=== PATIENT | male | born 2000 | race Caucasian/White ===

== ENCOUNTER 2024-02-14 13:45 | Outpatient (RCR) | payer OTHER, MEDICAID, SELFPAY ==
--- NOTE | 2024-01-31 16:30 | PT.OPPOC ---
Physical, Occupational & Speech Therapy At [facility] Current Diagnoses Functional intestinal disorder, unspecified (01/31/24) Abnormal posture (01/31/24) Other difficulties with micturition (01/31/24) Weakness (01/31/24) Visit Care Team Role Provider Type Referring Provider Specialty: Address: Phone: Fax: Email: Maryam Treadwell MD Family Provider Non-Staff Primary Care Provider Specialty: Internal Medicine Address: [address] [place], [address] Email: Seb Estevez MD Attending Provider Non-Staff Specialty: Urology Address: [address] [place], [address] Email: Plan Of Care PT-OP-T Assessment and Plan Start: 01/31/24 13:54 Freq: Status: Active Protocol: Document 01/31/24 13:45 [facility] (Rec: 02/02/24 11:38 [facility] [id number]) Physical Therapy Assessment Rehab Potential Rehabilitation Potential Good Evaluation Complexity Number of Personal Factors/Comorbidities 0 Number of Body Systems Impaired 1-2 Clinical Presentation at Evaluation Stable Impairments Impairments Functional Mobility,Pain, Posture,Soft Tissue Mobility, Strength,Tone Goals 4 Impairment Decreased awareness of the pelvic floor and transverse abdominal muscles Senior Living Goal (LTG) Aleksey is independent with a home program of both pelvic floor relaxation as well as endurance training and improved strength of the transverse abdominal musculature LTG Duration 8 weeks 3 Impairment Bowel dysfunction and Aleksey does not always have daily bowel movements which can contribute to urinary urgency Short Term Goal (STG) Aleksey is educated in self abdominal massage to help improve frequency of bowel movements STG Duration 4 weeks 2 Impairment poor postural habits and decreased use of the diaphragm with tightness and compression across the lower rib cage and the region of the transverse colon Short Term Goal (STG) Aleksey is educated on diaphragmatic breathing and postural exercises STG Duration weeks 1 Impairment voiding dysfunction with intermittent difficulty emptying the bladder and slow hesitant urinary stream Short Term Goal (STG) Aleksey is educated on bladder irritants as well as bladder retraining to help improve voids STG Duration 4 weeks Senior Living Goal (LTG) Aleksey reports improvement with his ability to void and feels as if he is able to fully empty his bladder LTG Duration 8 weeks Assessment Summary Assessment Aleksey is a 24 year old male referred to PT with history of dysfunctional voiding including difficulty with voiding and with bowel movements. Aleksey reports he has had difficulty voiding his whole life but notes it has worsened. He states that at times he is able to void what he feels like as completely and other times where he has a slow and hesitant stream to void and doesn't feel he empties all the way. He reports he has had a chronic dysfunction with his bowels and has a history of bowel movements only a few times per week but this has improved lately. Aleksey does have a history of Gastroesophageal reflux disease, GI bleed, asthma I reviewed fluid intake with Aleksey and he was given a bladder diary to record fluid intake and voids for the next week. He states he is only drinking Monster energy drinks as well as G-fuel energy drinks during his day. He is not drinking water at this time. Aleksey works [employer] and notes his sleep in the day is often disrupted due to commitments he has. He wakes 2-3 times during his sleep to void. I educated Aleksey on bladder irritants today and the importance of flushing out the bladder with water. With exam Aleksey is very tight and guarded in the region of the upper abdominal wall and diaphragm. He holds tension here and there is decreased use of the diaphragm for respiration as he using mainly the upper neck and chest. There is fascial tightness across the suprapubic fascia and bladder as well as over the transverse colon and descending colon. Aleksey was educated in a self massage over the colon to help stimulate bowel movements. Aleksey sits in a forward posture with forward head and shoulders which can contribute to his symptoms. Further evaluation of the pelvic floor will be done at next visit and Aleksey will be educated in exercises to open up the anterior chest, encourage diaphragmatic breathing and relaxed awareness of the pelvic floor for improved ability to fully void. Aleksey is a good candidate for PT Physical Therapy Plan Frequency and Duration Frequency of Treatment 1x/Week Duration of treatment (weeks) 8 Plan of Care Start Date 01/31/24 Plan of Care End Date 03/27/24 Therapeutic Interventions Therapeutic Interventions Manual Therapy,Neuromuscular Re-education,Patient/Caregiver Education,Self-Care/Home Management,Soft Tissue Mobilization,Therapeutic Exercises Modalities Biofeedback Next Visit Focus/Plan Next Note Type Treatment Note Next Visit Plan review abdominal massage technique given today and review bladder diary with Aleksey, begin pelvic floor training both for relaxed awareness of the pelvic floor and for endurance training, educate Aleksey on bladder retraining Plan of Care Dates Plan of Care Start Date 01/31/24 Plan of Care End Date 03/27/24 Electronically Signed by: Raven Rivas, PT 02/02/24 5110 If you are in agreement with this Plan of Care, please return a signed and dated copy. I have reviewed this Plan of Care and certify that the skilled therapy services above are required to meet the patient?s needs. Physician Signature Date Printed Name and Credentials Clinical Instructor Signature Printed Name and Credentials
--- NOTE | 2024-01-31 16:30 | PT.OIE ---
Current Diagnoses Functional intestinal disorder, unspecified (01/31/24) Abnormal posture (01/31/24) Other difficulties with micturition (01/31/24) Weakness (01/31/24) Visit Care Team Role Provider Type Referring Provider Specialty: Address: Phone: Fax: Email: Maryam Treadwell MD Family Provider Non-Staff Primary Care Provider Specialty: Internal Medicine Address: [address] [place], [address] Email: Seb Estevez MD Attending Provider Non-Staff Specialty: Urology Address: [address] [place], [address] Email: Physical Therapy Initial Evaluation PT-OP-A Visit Information Start: 01/31/24 13:54 Freq: Status: Active Protocol: Document 01/31/24 13:45 [facility] (Rec: 02/02/24 11:27 [facility] [id number]) Out-Patient Physical Therapy Visit Information Visit Information Visit Type Initial Evaluation Visit Start Time 13:45 Visit Stop Time 14:30 Visit Number 1 Evaluation Information Evaluation Date 01/31/24 PT-OP-B Current Condition Start: 01/31/24 13:54 Freq: Status: Active Protocol: Document 01/31/24 13:45 [facility] (Rec: 01/31/24 14:34 [facility] [id number]) Current Condition History of Current Condition Onset Date chronic but worsening Current Complaints difficulty voiding and with bowel movements, urinary urgency History of Current Condition 24 year old male who has difficulty with voiding and bowel dysfuction and referred to PT with dysfunctional voiding. Aleksey reports his symptoms are intermittent and at times he tries to void and nothing comes out and other times it comes out fine. He voids 5-6 times per day. Has a history of bowel movements only 2 times per week and he has been working on this and now he is having a bowel movement every day. 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 He reports he has been drinking a lot of caffeine, 2 monsters per day and gfuel energy drinks. goes to bed at 6 in the am and gets 5-6 hours of sleep but broken up. Aleksey reports It takes about 10 minutes to void fully. Treatment Goals Patient/Caregiver Goals to improve voiding and eliminate urgency PT-OP-C Subjective Start: 01/31/24 13:54 Freq: Status: Active Protocol: Document 01/31/24 13:45 [facility] (Rec: 02/02/24 11:38 [facility] [id number]) Patient Questionnaires Pelvic Pain and Urgency/Frequency Patient Symptom Scale Pelvic Pain Score 10 OP-PT Pain Assessment Pain Assessment Grid Paper Pain Assessment Grid Completed Yes Location bladder Pain Location Details anterior pelvis over the bladder Intensity 2 Scale Used Numeric (0 - 10) PT-OP-F Manual Assessment Start: 01/31/24 13:54 Freq: Status: Active Protocol: Document 01/31/24 13:45 [facility] (Rec: 02/02/24 11:38 [facility] [id number]) Manual Assessments Soft Tissue Assessment Soft Tissue Mobility Assessment fascial restrictions noted in the suprapubic fascia over the bladder and over the transverse and descending colon, decreased diaphragmatic breathing ability and pt uses hip upper neck and chest to breath, tightness of the upper abdominal fascia PT-OP-I Pelvic Floor Start: 01/31/24 13:54 Freq: Status: Active Protocol: Document 01/31/24 13:45 [facility] (Rec: 02/02/24 11:38 [facility] [id number]) Pelvic Floor Assessment Urine Pelvic Floor Surgery No Urinary Symptoms Urge Sensation,Hesitancy, Incomplete Emptying,Pain Other Urinary Symptoms pain with intercourse and ejaculation, urinary urgency and frequency, Aleksey reports he strains at times to void, slow hesitant urinary stream Nocturia 2-3 PT-OP-J Posture/Palpation/Skin Start: 02/02/24 11:57 Freq: Status: Active Protocol: Document 01/31/24 13:45 [facility] (Rec: 02/02/24 11:58 [facility] [id number]) Posture Evaluation Position Sitting Evaluation View Lateral Head/C-Spine Posture Flexed TMJ Posture Lips Together Shoulder Posture (L) Rounded,(R) Rounded Comments Posture Comments forward shoulder and slumped forward posture PT-OP-M Strength Start: 01/31/24 13:54 Freq: Status: Active Protocol: Document 01/31/24 13:45 [facility] (Rec: 02/02/24 13:54 [facility] [id number]) Trunk Strength Trunk Manual Muscle Testing Core Stabilization poor core stabilization and decreased lower abdominal activation PT-OP-Q Treatments Start: 01/31/24 13:54 Freq: Status: Active Protocol: Document 01/31/24 13:45 [facility] (Rec: 02/02/24 11:41 [facility] [id number]) Manual Therapy Treatment Soft Tissue Mobilization ILU abdominal massage Mobilization Type Myofascial Release Intensity/Depth Moderate Body Position Hooklying Comments Aleksey was instruced in ILU self massage over the abdominal wall and I was able to work on MFR today, he is restricted in the transverse and descending colon Self-Care/Home Management Treatment Education Patient Education Home Exercise Program Other Education Aleksey was given a bladder diary with instructions to track caffeine intake, water intake and voids, he was instructed in ILU self massage to help with bowel movements PT-OP-T Assessment and Plan Start: 01/31/24 13:54 Freq: Status: Active Protocol: Document 01/31/24 13:45 [facility] (Rec: 02/02/24 11:38 [facility] [id number]) Physical Therapy Assessment Rehab Potential Rehabilitation Potential Good Evaluation Complexity Number of Personal Factors/Comorbidities 0 Number of Body Systems Impaired 1-2 Clinical Presentation at Evaluation Stable Impairments Impairments Functional Mobility,Pain, Posture,Soft Tissue Mobility, Strength,Tone Goals 4 Impairment Decreased awareness of the pelvic floor and transverse abdominal muscles Pull Over Machine Operator Goal (LTG) Aleksey is independent with a home program of both pelvic floor relaxation as well as endurance training and improved strength of the transverse abdominal musculature LTG Duration 8 weeks 3 Impairment Bowel dysfunction and Aleksey does not always have daily bowel movements which can contribute to urinary urgency Short Term Goal (STG) Aleksey is educated in self abdominal massage to help improve frequency of bowel movements STG Duration 4 weeks 2 Impairment poor postural habits and decreased use of the diaphraghm with tightness and compression across the lower rib cage and the region of the transverse colon Short Term Goal (STG) Aleksey is educated on diaphragmatic breathing and postural exercises STG Duration weeks 1 Impairment voiding dysfunction with intermittent difficulty emptying the bladder and slow hesitant urinary stream Short Term Goal (STG) Aleksey is educated on bladder irritants as well as bladder retraining to help improve voids STG Duration 4 weeks Pull Over Machine Operator Goal (LTG) Aleksey reports improvement with his ability to void and feels as if he is able to fully empty his bladder LTG Duration 8 weeks Assessment Summary Assessment Aleksey is a 24 year old male referred to PT with history of dysfunctional voiding including difficulty with voiding and with bowel movements. Aleksey reports he has had difficulty voiding his whole life but notes it has worsened. He states that at times he is able to void what he feels like as completely and other times where he has a slow and hesitant stream to void and doesn't feel he empties all the way. He reports he has had a chronic dysfunction with his bowels and has a history of bowel movements only a few times per week but this has improved lately. Aleksey does have a history of Gastroesophageal reflux disease, GI bleed, asthma I reviewed fluid intake with Aleksey and he was given a bladder diary to record fluid intake and voids for the next week. He states he is only drinking Monster energy drinks as well as G-fuel energy drinks during his day. He is not drinking water at this time. Aleksey works [employer] and notes his sleep in the day is often disrupted due to commitments he has. He wakes 2-3 times during his sleep to void. I educated Aleksey on bladder irritants today and the importance of flushing out the bladder with water. With exam Aleksey is very tight and guarded in the region of the upper abdominal wall and diaphraghm. He tolds tension here and there is decreased use of the diaphraghm for respiration as he using maining the upper neck and chest. There is fascial tightness across the suprapubic fascia and bladder as well as over the transverse colon and descending colon. Aleksey was educated in a self massage over the colon to help stimulate bowel movements. Aleksey sits in a forward posture with forward head and shoulders which can contribute to his symptoms. Further evaluation of the pelvic floor will be done at next visit and Aleksey will be educated in exercises to open up the anterior chest, encourage diaphragmatic breathing and relaxed awareness of the pelvic floor for improved ability to fully void. Aleksey is a good candidate for PT Physical Therapy Plan Frequency and Duration Frequency of Treatment 1x/Week Duration of treatment (weeks) 8 Plan of Care Start Date 01/31/24 Plan of Care End Date 03/27/24 Therapeutic Interventions Therapeutic Interventions Manual Therapy,Neuromuscular Re-education,Patient/Caregiver Education,Self-Care/Home Management,Soft Tissue Mobilization,Therapeutic Exercises Modalities Biofeedback Next Visit Focus/Plan Next Note Type Treatment Note Next Visit Plan review abdominal massage technique given today and review bladder diary with Aleksey, begin pelvic floor training both for relaxed awareness of the pelvic floor and for endurance training, educate Aleksey on bladder retraining
--- NOTE | 2024-02-14 14:27 | PT.OTN ---
Current Diagnoses Functional intestinal disorder, unspecified (02/14/24) Abnormal posture (02/14/24) Other difficulties with micturition (02/14/24) Weakness (02/14/24) Physical Therapy Treatment Note PT-OP-A Visit Information Start: 01/31/24 13:54 Freq: Status: Active Protocol: Document 02/14/24 13:42 [facility] (Rec: 02/14/24 14:26 [facility] [id number]) Out-Patient Physical Therapy Visit Information Visit Information Visit Type Treatment Note Visit Start Time 13:45 Visit Stop Time 14:30 Visit Number 2 PT-OP-B Current Condition Start: 01/31/24 13:54 Freq: Status: Active Protocol: Document 01/31/24 13:45 [facility] (Rec: 01/31/24 14:34 [facility] [id number]) Current Condition History of Current Condition Onset Date chronic but worsening Current Complaints difficulty voiding and with bowel movements, urinary urgency History of Current Condition 24 year old male who has difficulty with voiding and bowel dysfuction and referred to PT with dysfunctional voiding. Aleksey reports his symptoms are intermittent and at times he tries to void and nothing comes out and other times it comes out fine. He voids 5-6 times per day. Has a history of bowel movements only 2 times per week and he has been working on this and now he is having a bowel movement every day. He works [employer] shift so he sleeps during the middle of the day and he does wake up during his sleep to go to the bathroom 2-3 times. He reports he has been drinking a lot of caffeine, 2 monsters per day and gfuel energy drinks. goes to bed at 6 in the am and gets 5-6 hours of sleep but broken up. Aleksey reports It takes about 10 minutes to void fully. Treatment Goals Patient/Caregiver Goals to improve voiding and eliminate urgency PT-OP-C Subjective Start: 01/31/24 13:54 Freq: Status: Active Protocol: Document 02/14/24 13:42 [facility] (Rec: 02/14/24 14:26 [facility] [id number]) OP-PT Subjective Patient Comments Patient Comments pt notes he has been drinking a lot more caffiene as he notes he really likes monsters . He has been trying to get in more water. He notes he has been very busy and only has had time to do the ILU massage one time. He reports he does not feel like he is fully emptying. PT-OP-F Manual Assessment Start: 01/31/24 13:54 Freq: Status: Active Protocol: Document 01/31/24 13:45 [facility] (Rec: 02/02/24 11:38 [facility] [id number]) Manual Assessments Soft Tissue Assessment Soft Tissue Mobility Assessment fascial restrictions noted in the suprapubic fascia over the bladder and over the transverse and descending colon, decreased diaphragmatic breathing ability and pt uses hip upper neck and chest to breath, tightness of the upper abdominal fascia PT-OP-I Pelvic Floor Start: 01/31/24 13:54 Freq: Status: Active Protocol: Document 01/31/24 13:45 [facility] (Rec: 02/02/24 11:38 [facility] [id number]) Pelvic Floor Assessment Urine Pelvic Floor Surgery No Urinary Symptoms Urge Sensation,Hesitancy, Incomplete Emptying,Pain Other Urinary Symptoms pain with intercourse and ejaculation, urinary urgency and frequency, Aleksey reports he strains at times to void, slow hesitant urinary stream Nocturia 2-3 PT-OP-J Posture/Palpation/Skin Start: 02/02/24 11:57 Freq: Status: Active Protocol: Document 01/31/24 13:45 [facility] (Rec: 02/02/24 11:58 [facility] [id number]) Posture Evaluation Position Sitting Evaluation View Lateral Head/C-Spine Posture Flexed TMJ Posture Lips Together Shoulder Posture (L) Rounded,(R) Rounded Comments Posture Comments forward shoulder and slumped forward posture PT-OP-M Strength Start: 01/31/24 13:54 Freq: Status: Active Protocol: Document 01/31/24 13:45 [facility] (Rec: 02/02/24 13:54 [facility] [id number]) Trunk Strength Trunk Manual Muscle Testing Core Stabilization poor core stabilization and decreased lower abdominal activation PT-OP-Q Treatments Start: 01/31/24 13:54 Freq: Status: Active Protocol: Document 02/14/24 13:42 [facility] (Rec: 02/14/24 14:26 [facility] [id number]) Therapeutic Exercises Supine Exercises piriformis stretch Reps/Minutes hold 1-2 min modified squat stretch Reps/Minutes hold 1-2 minutes Prone Exercises prone on elbows Reps/Minutes 1-2 reps hodling 30 seconds Other Exercises lisandra pose Reps/Minutes hold 1-2 minute cat cow Reps/Minutes x 10 reps Self-Care/Home Management Treatment Education Patient Education Home Exercise Program Other Education instructions on voiding techniques to assist with pelvic floor relaxation, HEP PT-OP-T Assessment and Plan Start: 01/31/24 13:54 Freq: Status: Active Protocol: Document 02/14/24 13:42 [facility] (Rec: 02/14/24 14:26 [facility] [id number]) Physical Therapy Assessment Rehab Potential Rehabilitation Potential Good Evaluation Complexity Number of Personal Factors/Comorbidities 0 Number of Body Systems Impaired 1-2 Clinical Presentation at Evaluation Stable Impairments Impairments Functional Mobility,Pain, Posture,Soft Tissue Mobility, Strength,Tone Goals 4 Impairment Decreased awareness of the pelvic floor and transverse abdominal muscles Senior Living Goal (LTG) Aleksey is independent with a home program of both pelvic floor relaxation as well as endurance training and improved strength of the transverse abdominal musculature LTG Duration 8 weeks 3 Impairment Bowel dysfunction and Aleksey does not always have daily bowel movements which can contribute to urinary urgency Short Term Goal (STG) Aleksey is educated in self abdominal massage to help improve frequency of bowel movements STG Duration 4 weeks 2 Impairment poor postural habits and decreased use of the diaphraghm with tightness and compression across the lower rib cage and the region of the transverse colon Short Term Goal (STG) Aleksey is educated on diaphragmatic breathing and postural exercises STG Duration weeks 1 Impairment voiding dysfunction with intermittent difficulty emptying the bladder and slow hesitant urinary stream Short Term Goal (STG) Aleksey is educated on bladder irritants as well as bladder retraining to help improve voids STG Duration 4 weeks Senior Living Goal (LTG) Aleksey reports improvement with his ability to void and feels as if he is able to fully empty his bladder LTG Duration 8 weeks Assessment Summary Assessment Aleksey did not bring back bladder diary today and he reports he is actually drinking more caffiene Physical Therapy Plan Frequency and Duration Frequency of Treatment 1x/Week Duration of treatment (weeks) 8 Plan of Care Start Date 01/31/24 Plan of Care End Date 03/27/24 Therapeutic Interventions Therapeutic Interventions Manual Therapy,Neuromuscular Re-education,Patient/Caregiver Education,Self-Care/Home Management,Soft Tissue Mobilization,Therapeutic Exercises Modalities Biofeedback Next Visit Focus/Plan Next Note Type Treatment Note Next Visit Plan review exercises given at today's visit and review how Aleksey is doing with pelvic floor relaxation with voiding
--- NOTE | 2024-10-18 14:13 | PT.OPDS ---
Current Diagnoses Functional intestinal disorder, unspecified (02/14/24) Abnormal posture (02/14/24) Other difficulties with micturition (02/14/24) Weakness (02/14/24) Visit Care Team Role Provider Type Referring Provider Specialty: Address: Phone: Fax: Email: Maryam Treadwell MD Family Provider Non-Staff Primary Care Provider Specialty: Internal Medicine Address: [address] [place], [address] Email: Seb Estevez MD Attending Provider Non-Staff Specialty: Urology Address: [address] [place], [address] Email: Visit Number Visit Number 2 Discharge Summary PT-OP-B Current Condition Start: 01/31/24 13:54 Freq: Status: Active Protocol: Document 01/31/24 13:45 [facility] (Rec: 01/31/24 14:34 [facility] [id number]) Current Condition History of Current Condition Onset Date chronic but worsening Current Complaints difficulty voiding and with bowel movements, urinary urgency History of Current Condition 24 year old male who has difficulty with voiding and bowel dysfuction and referred to PT with dysfunctional voiding. Aleksey reports his symptoms are intermittent and at times he tries to void and nothing comes out and other times it comes out fine. He voids 5-6 times per day. Has a history of bowel movements only 2 times per week and he has been working on this and now he is having a bowel movement every day. He works [employer] shift so he sleeps during the middle of the day and he does wake up during his sleep to go to the bathroom 2-3 times. He reports he has been drinking a lot of caffeine, 2 monsters per day and gfuel energy drinks. goes to bed at 6 in the am and gets 5-6 hours of sleep but broken up. Aleksey reports It takes about 10 minutes to void fully. Treatment Goals Patient/Caregiver Goals to improve voiding and eliminate urgency PT-OP-C Subjective Start: 01/31/24 13:54 Freq: Status: Active Protocol: Document 02/14/24 13:42 [facility] (Rec: 02/14/24 14:26 [facility] [id number]) OP-PT Subjective Patient Comments Patient Comments pt notes he has been drinking a lot more caffiene as he notes he really likes monsters . He has been trying to get in more water. He notes he has been very busy and only has had time to do the ILU massage one time. He reports he does not feel like he is fully emptying. PT-OP-F Manual Assessment Start: 01/31/24 13:54 Freq: Status: Active Protocol: Document 01/31/24 13:45 [facility] (Rec: 02/02/24 11:38 [facility] [id number]) Manual Assessments Soft Tissue Assessment Soft Tissue Mobility Assessment fascial restrictions noted in the suprapubic fascia over the bladder and over the transverse and descending colon, decreased diaphragmatic breathing ability and pt uses hip upper neck and chest to breath, tightness of the upper abdominal fascia PT-OP-I Pelvic Floor Start: 01/31/24 13:54 Freq: Status: Active Protocol: Document 01/31/24 13:45 [facility] (Rec: 02/02/24 11:38 [facility] [id number]) Pelvic Floor Assessment Urine Pelvic Floor Surgery No Urinary Symptoms Urge Sensation,Hesitancy, Incomplete Emptying,Pain Other Urinary Symptoms pain with intercourse and ejaculation, urinary urgency and frequency, Aleksey reports he strains at times to void, slow hesitant urinary stream Nocturia 2-3 PT-OP-J Posture/Palpation/Skin Start: 02/02/24 11:57 Freq: Status: Active Protocol: Document 01/31/24 13:45 [facility] (Rec: 02/02/24 11:58 [facility] [id number]) Posture Evaluation Position Sitting Evaluation View Lateral Head/C-Spine Posture Flexed TMJ Posture Lips Together Shoulder Posture (L) Rounded,(R) Rounded Comments Posture Comments forward shoulder and slumped forward posture PT-OP-M Strength Start: 01/31/24 13:54 Freq: Status: Active Protocol: Document 01/31/24 13:45 [facility] (Rec: 02/02/24 13:54 [facility] [id number]) Trunk Strength Trunk Manual Muscle Testing Core Stabilization poor core stabilization and decreased lower abdominal activation PT-OP-T Assessment and Plan Start: 01/31/24 13:54 Freq: Status: Active Protocol: Document 10/18/24 14:12 [facility] (Rec: 10/18/24 14:13 [facility] [id number]) Physical Therapy Assessment Assessment Summary Assessment Aleksey has cancelled his last 2 PT visits, he was seen for a total of 2 visits Physical Therapy Plan Discharge Physical Therapy Discharge Reasons Patient Request
== END 2024-10-19 09:52 | disposition home or self-care (01) ==
LOC: PHYS 13:45
PROVIDERS: Family Provider Internal Medicine; PCP Internal Medicine; Visit Provider Urology
DX: R39.198 Other difficulties with micturition (principal); K59.9 Functional intestinal disorder, unspecified; R29.3 Abnormal posture; R53.1 Weakness
CPT/HCPCS: 97110; 97161; 97535